=== PATIENT | male | born 1950 | race Caucasian/White ===

== ENCOUNTER 2017-02-03 17:26 | Emergency (ER) | payer MEDICARE, MEDICAID ==
[~2017-02-03] VITALS: Ht 190.5 cm; Wt 113.6 kg
[~2017-02-03 17:26] MED LIST: BUPR100T15 PO; HYDR-4003 PO; TAMS0.4C29 PO
[2017-02-03 17:34] VITALS: BP 133/79; PULSE 111; RESP 32; O2SAT 98
== END 2017-02-03 18:25 | disposition left against medical advice (07) ==
LOC: SED 17:26
DX: Z53.21 Procedure and treatment not carried out due to patient leaving prior to being seen by health care provider (principal)